=== PATIENT | female | born 1960 | race American Indian/Alaskan Native ===

== ENCOUNTER → 2020-04-16 10:36 | Outpatient (BNVA) | payer OTHER, SELFPAY | PROVIDERS: PCP Nurse Practitioner Family; Referring Provider Nurse Practitioner Family; Visit Provider Student in an Organized Health Care Education/Training Program | DX: Z76.89 Persons encountering health services in other specified circumstances (principal) ==

== ENCOUNTER 2020-11-22 15:18 | Outpatient (REF) | payer OTHER, SELFPAY ==
--- NOTE | ~2020-11-22 | XR_ITS ---
EXAMINATION: XR SHOULDER, RIGHT CLINICAL INFORMATION: Pain COMPARISON: None TECHNIQUE: AP external rotation, Grashey, scapular Y, and axillary views of the right shoulder. FINDINGS: Bone alignment is normal. No acute fracture or dislocation is seen. The glenohumeral joint is normal. There is arthritis at the acromioclavicular joint. There are osteophytes along the cortical clavicular ligament ligament suggestive of old trauma. Soft tissues are otherwise unremarkable. XR/XR shoulder RT min 2V IMPRESSION: Arthritis at the acromioclavicular joint and osteophytes along the coracoclavicular ligament suggestive of changes from old trauma.
[2020-11-22 16:55] LABS: Alanine Aminotransferase 18 U/L (0-31); Albumin Level 4.1 g/dL (3.5-5.0); Alkaline Phosphatase 73 U/L (39-117); Anion Gap 11 (12-20); Aspartate Amino Transferase 19 U/L (5-31); Bilirubin Total 0.3 mg/dL (0.0-1.0); Blood Urea Nitrogen 9 mg/dL (9-16); Calcium 9.1 mg/dL (8.4-10.2); Carbon Dioxide 28 mmol/L (22-29); Chloride 105 mmol/L (96-108); Cholesterol 133 mg/dL; Estimated Glomerular Filt Rate > 60; Glucose Fasting 87 mg/dL (60-99); HDL Cholesterol 37 mg/dL; LDL Cholesterol Calculated 72 mg/dl; Potassium 4.1 mmol/L (3.3-5.1); Sodium 140 mmol/L (135-145); Total Protein 6.9 g/dL (6.5-8.0); Triglycerides 124 mg/dL
== END 2020-11-22 15:19 | disposition home or self-care (01) ==
LOC: HO.HMGCX 15:18
PROVIDERS: PCP Nurse Practitioner Family; Visit Provider Nurse Practitioner Family
DX: Z00.00 Encounter for general adult medical examination without abnormal findings (principal); M25.511 Pain in right shoulder
CPT/HCPCS: 36415; 73030; 80053; 80061; 84443

== ENCOUNTER 2020-11-23 12:19 | Outpatient (REF) | payer OTHER, SELFPAY ==
[2020-11-23 13:55] LABS: Glucose Urine UA NEG (NEG); Leukocyte Esterase Urine 2+ (NEG); Nitrite Urine POS (NEG); UACC Culture Trigger YES; Urine Blood NEG (NEG); Urine Ketones NEG (NEG); Urine Protein NEG (NEG-TRACE)
[2020-11-23 13:57] LABS: Appearance Urine HAZY; Color Urine YELLOW
[2020-11-23 14:18] LABS: Bacteria Urine 4+ /LPF; RBC Urine 0 /HPF (0); Renal Epithelial Cells Urine TRACE /LPF; Squamous Epithelial Cell Urine 2+ /LPF; WBC Clumps Urine NOTED; WBC Urine 50-75 /HPF (0-4)
== END 2020-11-23 12:20 | disposition home or self-care (01) ==
LOC: HO.HMGCLNP 12:19
PROVIDERS: Visit Provider Nurse Practitioner Family
DX: Z00.00 Encounter for general adult medical examination without abnormal findings (principal)
CPT/HCPCS: 81001; 81003; 87086; 87088; 87186

== ENCOUNTER 2021-01-12 14:15 | Outpatient (REF) | payer OTHER, SELFPAY ==
--- NOTE | ~2021-01-12 | MM_ITS ---
EXAMINATION: MM SCREENING DIGITAL BREAST TOMOSYNTHESIS, BILATERAL CLINICAL INFORMATION: Screening. Asymptomatic. Benign left stereotactic biopsy for calcifications 03/26/2018. The lifetime risk of breast cancer based on the Tyrer-Cuzick Model is 12%. COMPARISON: Mammography: 03/26/2018, 03/11/2018, 02/12/2017. TECHNIQUE: Digital breast tomosynthesis is performed in both the craniocaudal and mediolateral oblique views along with computer-aided detection (CAD). Synthesized 2D images are generated from the tomosynthesis. FINDINGS: There are scattered areas of fibroglandular density (ACR BI-RADS breast composition Category b). Parenchymal pattern is similar to prior exams. There are scattered minor fibrocystic changes and asymmetries similar to prior studies. There is a biopsy clip marker mid upper outer left breast. There are no abnormal calcifications. The axilla and skin contours are unremarkable. No significant changes. MM/MM tomosynthesis screening BI IMPRESSION: No mammographic evidence of malignancy. ASSESSMENT: BI-RADS 2: Benign RECOMMENDATION: Routine annual mammography screening. This patient's information was entered into a reminder system with a target due date for their next mammogram.
== END 2021-01-12 14:16 | disposition home or self-care (01) ==
LOC: HO.MAMMO 14:15
PROVIDERS: PCP Nurse Practitioner Family; Visit Provider Nurse Practitioner Family
DX: Z12.31 Encounter for screening mammogram for malignant neoplasm of breast (principal)
CPT/HCPCS: 77063; 77067

== ENCOUNTER → 2021-09-20 14:31 | Outpatient (BNVA) | payer OTHER, SELFPAY | PROVIDERS: PCP Nurse Practitioner Family; Visit Provider Nurse Practitioner Family | DX: M79.7 Fibromyalgia (principal); M19.042 Primary osteoarthritis, left hand; M19.041 Primary osteoarthritis, right hand; M47.816 Spondylosis without myelopathy or radiculopathy, lumbar region | CPT/HCPCS: 99212 ==

== ENCOUNTER 2021-09-21 14:31 | Outpatient (REF) | payer OTHER, SELFPAY ==
--- NOTE | ~2021-09-21 | XR_ITS ---
EXAMINATION: THORACIC AND LUMBAR SPINE. CLINICAL INFORMATION: Dorsalgia. COMPARISON: None TECHNIQUE: 3 views lumbar spine and 3 views dorsal spine. FINDINGS: Dorsal spine: There is normal thoracic kyphosis. The vertebral and heights and alignment is normal. There is loss of disc at virtually all disc levels with moderate and lateral spondylosis. No visible acute fracture, lytic or sclerotic process seen. The paravertebral soft tissues are normal. Lumbar spine: There is normal lumbar lordosis. The vertebral heights and alignment is normal. There is loss of disc height virtually at every disc level most prominent at the L4-L5 and L5-S1 disc levels. There is ventral spondylosis seen throughout lumbar spine. No visible acute fracture or dislocation. XR/XR lumbar spine 2-3V IMPRESSION: Degenerative disc changes with ventral spondylosis throughout dorsal spine. No acute fracture or dislocation. Degenerative disc changes with ventral spondylosis lumbar spine. No visible acute fracture or lytic process seen.
--- NOTE | ~2021-09-21 | XR_ITS ---
EXAMINATION: THORACIC AND LUMBAR SPINE. CLINICAL INFORMATION: Dorsalgia. COMPARISON: None TECHNIQUE: 3 views lumbar spine and 3 views dorsal spine. FINDINGS: Dorsal spine: There is normal thoracic kyphosis. The vertebral and heights and alignment is normal. There is loss of disc at virtually all disc levels with moderate and lateral spondylosis. No visible acute fracture, lytic or sclerotic process seen. The paravertebral soft tissues are normal. Lumbar spine: There is normal lumbar lordosis. The vertebral heights and alignment is normal. There is loss of disc height virtually at every disc level most prominent at the L4-L5 and L5-S1 disc levels. There is ventral spondylosis seen throughout lumbar spine. No visible acute fracture or dislocation. XR/XR thoracic spine 3V IMPRESSION: Degenerative disc changes with ventral spondylosis throughout dorsal spine. No acute fracture or dislocation. Degenerative disc changes with ventral spondylosis lumbar spine. No visible acute fracture or lytic process seen.
[2021-09-21 16:49] LABS: Alanine Aminotransferase 21 U/L (0-31); Albumin Level 4.2 g/dL (3.5-5.0); Alkaline Phosphatase 60 U/L (39-117); Anion Gap 11 (12-20); Aspartate Amino Transferase 17 U/L (5-31); Bilirubin Total 0.4 mg/dL (0.0-1.0); Blood Urea Nitrogen 10 mg/dL (9-16); Calcium 9.4 mg/dL (8.4-10.2); Carbon Dioxide 28 mmol/L (22-29); Chloride 104 mmol/L (96-108); Estimated Glomerular Filt Rate > 60; Glucose Random 87 mg/dL (60-115); Potassium 5.1 mmol/L (3.3-5.1); Sodium 138 mmol/L (135-145); Total Protein 7.3 g/dL (6.5-8.0)
== END 2021-09-21 14:32 | disposition home or self-care (01) ==
LOC: HO.HMGCX 14:31
PROVIDERS: PCP Nurse Practitioner Family; Visit Provider Nurse Practitioner Family
DX: M54.9 Dorsalgia, unspecified (principal); M79.7 Fibromyalgia
CPT/HCPCS: 36415; 72072; 72100; 80053

== ENCOUNTER 2022-01-09 11:47 | Outpatient (REF) | payer OTHER, SELFPAY ==
--- NOTE | ~2022-01-09 | XR_ITS ---
EXAMINATION: XR HAND, LEFT CLINICAL INFORMATION: Fibromyalgia COMPARISON: Left hand radiographs 02/19/2018 TECHNIQUE: PA, lateral, and oblique views of the left hand. FINDINGS: No acute fracture or dislocation. Moderate degenerative changes of the first metacarpophalangeal joint with loss of joint space and degenerative spurring with more mild degenerative changes of the distal interphalangeal joints, progressed from prior. Soft tissues are unremarkable. XR/XR hand LT min 3V IMPRESSION: Degenerative changes of the worst involving the first carpometacarpal joint where it is moderate.
== END 2022-01-09 11:48 | disposition home or self-care (01) ==
LOC: HO.HMGCX 11:47
PROVIDERS: PCP Nurse Practitioner Family; Visit Provider Nurse Practitioner Family
DX: M79.7 Fibromyalgia (principal)
CPT/HCPCS: 73130

== ENCOUNTER 2022-01-13 14:24 | Outpatient (REF) | payer OTHER, SELFPAY ==
--- NOTE | ~2022-01-13 | MM_ITS ---
EXAMINATION: MM SCREENING DIGITAL BREAST TOMOSYNTHESIS, BILATERAL CLINICAL INFORMATION: Screening. Asymptomatic. The lifetime risk of breast cancer based on the Tyrer-Cuzick Model is 11%. COMPARISON: Mammography: 01/12/2021, 03/26/2018, 03/11/2018, 02/12/2017 TECHNIQUE: Digital breast tomosynthesis is performed in both the craniocaudal and mediolateral oblique views along with computer-aided detection (CAD). Synthesized 2D images are generated from the tomosynthesis. FINDINGS: There are scattered areas of fibroglandular density (ACR BI-RADS breast composition Category b). Parenchymal pattern is similar to prior exams. Breast tissue composition borders on heterogeneously dense. There is no developing density or interval mass or architectural abnormality. Biopsy clip marker is again noted left breast mid upper outer quadrant. There are some benign grouped coarse calcifications anterior 12:00 right breast and some old tightly grouped punctate calcifications posterior outer right breast. The axilla and skin contours are unremarkable. MM/MM tomosynthesis screening BI IMPRESSION: No mammographic evidence of malignancy. ASSESSMENT: BI-RADS 2: Benign RECOMMENDATION: Routine annual mammography screening. This patient's information was entered into a reminder system with a target due date for their next mammogram.
== END 2022-01-13 14:25 | disposition home or self-care (01) ==
LOC: HO.MAMMO 14:24
PROVIDERS: PCP Nurse Practitioner Family; Visit Provider Nurse Practitioner Family
DX: Z12.31 Encounter for screening mammogram for malignant neoplasm of breast (principal)
CPT/HCPCS: 77063; 77067

== ENCOUNTER 2022-03-03 09:46 | Outpatient (REF) | payer OTHER, SELFPAY ==
[2022-03-03 11:21] LABS: Appearance Urine Clear; Color Urine Yellow; Glucose Urine UA Negative (Negative); Leukocyte Esterase Urine Moderate (2+) (Negative); Nitrite Urine Negative (Negative); PH 6.5 (5.0-9.0); Specific Gravity - Urine 1.015 (1.005-1.025); UMIC TRIGGER UACC YES; Urine Blood Negative (Negative); Urine Ketones Negative (Negative); Urine Protein Negative (Neg-Trace)
[2022-03-03 11:27] LABS: MANUAL DIFF FLAG NO
[2022-03-03 11:28] LABS: Bacteria Urine None Seen (None Seen); Hyaline Casts Urine 0-2 /LPF (0-2); RBC Urine 0-2 /HPF (0-2); UACC Culture Trigger YES
[2022-03-03 11:49] LABS: Basophils Absolute Auto 0.1 X10*3/uL (0.0-0.2); Eosinophils Absolute Auto 0.3 X10*3/uL (0.0-0.4); Eosinophils Percent Auto 3.5 % (0-4); Hematocrit 42.2 % (37.0-47.0); Hemoglobin 13.9 g/dl (12.0-16.0); Imm Gran Abs Auto 0.03 X10*3/uL (0.00-0.03); Imm Gran Pct Auto 0.4 % (0.0-0.4); Lymphocytes Absolute Auto 2.3 X10*3/uL (1.2-4.9); Lymphocytes Percent Auto 28.3 % (20-40); Mean Corpuscular HGB Conc 32.9 g/dl (31.0-35.0); Mean Corpuscular Hemoglobin 27.6 pg (27.0-33.0); Mean Corpuscular Volume 83.7 fL (80.0-98.0); Mean Platelet Volume 9.5 fL (9.4-12.3); Monocytes Absolute Auto 0.5 X10*3/uL (0.1-1.2); Neutrophils Absolute Auto 4.8 x10*3/uL (2.0-8.3); Neutrophils Percent Auto 60.8 % (45-73); Platelet Count 382 X10*3/uL (160-400); Red Blood Count 5.04 X10*6/uL (4.20-5.50); Red Cell Distribution Width 12.9 % (11.0-16.0)
[2022-03-03 12:27] LABS: TSH reflex Free T4 0.68 uIU/mL (0.32-4.0); Vitamin D 25-OH Total 23.1 ng/mL (>30)
[2022-03-03 12:39] LABS: Alanine Aminotransferase 13 U/L (0-31); Albumin Level 4.3 g/dL (3.5-5.0); Alkaline Phosphatase 73 U/L (39-117); Anion Gap 16 (12-20); Aspartate Amino Transferase 12 U/L (5-31); Bilirubin Total 0.5 mg/dL (0.0-1.0); Blood Urea Nitrogen 12 mg/dL (9-16); Calcium 9.5 mg/dL (8.4-10.2); Carbon Dioxide 24 mmol/L (22-29); Chloride 104 mmol/L (96-108); Cholesterol 254 mg/dL; Estimated Glomerular Filt Rate > 60; Glucose Fasting 122 mg/dL (60-99); HDL Cholesterol 48 mg/dL; LDL Cholesterol Calculated 173 mg/dl; Potassium 4.4 mmol/L (3.3-5.1); Sodium 140 mmol/L (135-145); Total Protein 7.4 g/dL (6.5-8.0); Triglycerides 166 mg/dL
== END 2022-03-03 09:47 | disposition home or self-care (01) ==
LOC: HO.HMGCLDS 09:46
PROVIDERS: PCP Nurse Practitioner Family; Visit Provider Nurse Practitioner Family
DX: Z00.00 Encounter for general adult medical examination without abnormal findings (principal); Z78.0 Asymptomatic menopausal state
CPT/HCPCS: 36415; 80053; 80061; 81001; 82306; 84443; 85025; 87086

== ENCOUNTER → 2022-05-11 14:39 | Outpatient (BNVA) | payer OTHER, SELFPAY | PROVIDERS: PCP Nurse Practitioner Family; Visit Provider Nurse Practitioner Family | DX: M79.7 Fibromyalgia (principal); M47.814 Spondylosis without myelopathy or radiculopathy, thoracic region; M47.816 Spondylosis without myelopathy or radiculopathy, lumbar region | CPT/HCPCS: 99212 ==

== ENCOUNTER 2022-06-23 13:44 | Outpatient (REF) | payer OTHER, SELFPAY ==
[2022-06-28 11:43] LABS: HPV mRNA E6/E7 rflx Not Detected (Not Detected)
== END 2022-06-23 13:45 | disposition home or self-care (01) ==
LOC: HO.LNP 13:44
PROVIDERS: PCP Nurse Practitioner Family; Visit Provider Advanced Practice Midwife
DX: Z01.419 Encounter for gynecological examination (general) (routine) without abnormal findings (principal); G89.29 Other chronic pain; M19.90 Unspecified osteoarthritis, unspecified site; Z20.2 Contact with and (suspected) exposure to infections with a predominantly sexual mode of transmission
CPT/HCPCS: 87624; 88142